=== PATIENT | male | born 1960 | race Caucasian/White ===

== ENCOUNTER 2019-07-23 11:42 | Day surgery (SDC) | payer BC ==
[~2019-07-23] VITALS: Ht 175.3 cm; Wt 75.5 kg
[~2019-07-23 11:42] MED LIST: ASPI325 PO; CENTRUM SILVER1 EAC4 PO; LISI5 PO; LIVALO1 MG PO; LIVALO4 MG PO; Nitrostat0.4 MG SL; Omeprazole20 M1 PO
--- NOTE | 2019-07-23 13:25 | NUR ---
07/23/19 1325 Erica Jeong S 2 SIGMOID COLON POLYPS WERE REMOVED BUT ONLY ONE RETRIEVED. DR. ROSS NOTIFIED BY [email or web address]
== END 2019-07-23 14:05 | disposition home or self-care (01) ==
LOC: ORSCSDS 11:42
PROVIDERS: Internal Medicine Gastroenterology
PROC: 0DBP8ZX Excision of Rectum, Via Natural or Artificial Opening Endoscopic, Diagnostic (ICD-10-PCS; principal; 2019-07-23 13:00)
PROC: 0DB58ZX Excision of Esophagus, Via Natural or Artificial Opening Endoscopic, Diagnostic (ICD-10-PCS; principal; 2019-07-23 13:00)
DX: K21.9 Gastro-esophageal reflux disease without esophagitis (principal); K22.70 Barrett's esophagus without dysplasia; K44.9 Diaphragmatic hernia without obstruction or gangrene; D12.8 Benign neoplasm of rectum; D37.4 Neoplasm of uncertain behavior of colon; K57.30 Diverticulosis of large intestine without perforation or abscess without bleeding; Z12.11 Encounter for screening for malignant neoplasm of colon; Z86.010 Personal history of colon polyps; Z80.0 Family history of malignant neoplasm of digestive organs; I10 Essential (primary) hypertension; E78.2 Mixed hyperlipidemia; Z79.899 Other long term (current) drug therapy; F17.220 Nicotine dependence, chewing tobacco, uncomplicated
CPT/HCPCS: 88305; J2704; J7120

== ENCOUNTER 2022-06-30 07:40 | Day surgery (SDC) | payer BC ==
[~2022-06-30] VITALS: Ht 175.3 cm; Wt 73.3 kg
[~2022-06-30 07:40] MED LIST changes: +Aspir 8181 MG PO; +NITR.4SL SL; +Prinivil10 MG PO; +REPATHA SY140 MG/1 M SC; +TURMERIC ROOT5000 GM
--- NOTE | 2022-06-30 12:32 | NUR ---
06/30/22 1232 Rohith Coelho PT BEGAN REPORTING " MILD" NAUSEA SHORTLY BEFORE DISCHARGE. PT STATED SHE BELIEVED SHE JUST ATE TOO FAST AND WOULD RATHER GO HOME THAN RECEIVE MEDICATION IN STEP DOWN.
== END 2022-06-30 09:58 | disposition home or self-care (01) ==
LOC: ORSCSDS 07:40
PROVIDERS: Ophthalmology
PROC: 08DK3ZZ Extraction of Left Lens, Percutaneous Approach (ICD-10-PCS; principal; 2022-06-30 09:00)
DX: H25.12 Age-related nuclear cataract, left eye (principal); I10 Essential (primary) hypertension; I25.2 Old myocardial infarction; I25.10 Atherosclerotic heart disease of native coronary artery without angina pectoris; E78.5 Hyperlipidemia, unspecified; Z79.82 Long term (current) use of aspirin; Z79.899 Other long term (current) drug therapy
CPT/HCPCS: J2001; J3010; J3301; J7040; V2632

== ENCOUNTER 2022-10-11 08:45 | Day surgery (SDC) | payer BC ==
[~2022-10-11] VITALS: Ht 175.3 cm; Wt 81.1 kg
== END 2022-10-11 10:31 | disposition home or self-care (01) ==
LOC: ORSCSDS 08:45
PROVIDERS: Internal Medicine Gastroenterology
PROC: 0DB58ZX Excision of Esophagus, Via Natural or Artificial Opening Endoscopic, Diagnostic (ICD-10-PCS; principal; 2022-10-11 10:00)
DX: K22.70 Barrett's esophagus without dysplasia (principal); K44.9 Diaphragmatic hernia without obstruction or gangrene; E66.9 Obesity, unspecified; Z68.36 Body mass index [BMI] 36.0-36.9, adult; Z79.899 Other long term (current) drug therapy
CPT/HCPCS: 88305; J2704; J7120

== ENCOUNTER 2022-10-29 13:11 | Day surgery (SDC) | payer BC ==
[~2022-10-29] VITALS: Ht 175.3 cm; Wt 79.2 kg
[2022-10-29] MEDS ORDERED: OMEP20ER PO (14:23)
--- NOTE | 2022-10-29 15:11 | NUR ---
10/29/22 1511 Sathish Mcgraw ROPIVACAINE 0.5% 20 MLS MIXED & VERIFIED W/ EPI 0.10 ML (1MG/ML) PER ORDER TO MAKE ROPIVACAINE 0.5% 1:200,00 FOR INJECTION AT OPSITE. 20 MLS INJECTED.
== END 2022-10-29 16:06 | disposition home or self-care (01) ==
LOC: ORSCSDS 13:11
PROVIDERS: Podiatrist Foot & Ankle Surgery
PROC: 0YBN0ZZ Excision of Left Foot, Open Approach (ICD-10-PCS; principal; 2022-10-29 14:45)
DX: M67.472 Ganglion, left ankle and foot (principal); I10 Essential (primary) hypertension; K21.9 Gastro-esophageal reflux disease without esophagitis; Z87.891 Personal history of nicotine dependence; Z79.82 Long term (current) use of aspirin; Z79.899 Other long term (current) drug therapy
CPT/HCPCS: J0690; J2250; J2704; J2795; J3010; J7120

== ENCOUNTER 2023-10-06 09:05 | Day surgery (SDC) | payer MEDICARE, OTHER ==
[~2023-10-06] VITALS: Ht 175.3 cm; Wt 80.6 kg
[~2023-10-06 09:05] MED LIST changes: +DHEA25 M1 PO; +DORZOLAMIDE-TIM10 ML BOTHEYES; +MULTIPLE VITAM1 EACH PO; +NITR.4SL; +OMEP20ER PO; -TURMERIC ROOT5000 GM; +TURMERIC500 M2 PO; +VITAMIN D310 MC4 PO; +Vitamin B-12250 MCG PO
[2023-10-06 10:55] VITALS: BP 137/91
--- NOTE | 2023-10-06 11:19 | NUR ---
10/06/23 1119 Rohith Coelho IV RTEMOVED INTACT. SITE WNL.
== END 2023-10-06 11:15 | disposition home or self-care (01) ==
LOC: ORSCSDS 09:05
PROVIDERS: Ophthalmology
PROC: 08RJ3JZ Replacement of Right Lens with Synthetic Substitute, Percutaneous Approach (ICD-10-PCS; principal; 2023-10-06 10:30)
DX: H25.11 Age-related nuclear cataract, right eye (principal); Z96.1 Presence of intraocular lens; H40.1131 Primary open-angle glaucoma, bilateral, mild stage; I10 Essential (primary) hypertension; K21.9 Gastro-esophageal reflux disease without esophagitis; I25.10 Atherosclerotic heart disease of native coronary artery without angina pectoris; I25.2 Old myocardial infarction; E78.00 Pure hypercholesterolemia, unspecified; Z87.891 Personal history of nicotine dependence; Z79.82 Long term (current) use of aspirin; Z79.899 Other long term (current) drug therapy
CPT/HCPCS: J2250; J3010; J3301; J7040; V2632

== ENCOUNTER 2024-09-10 10:03 | Day surgery (SDC) | payer MEDICARE, OTHER ==
[~2024-09-10] VITALS: Ht 175.3 cm; Wt 78.1 kg
[~2024-09-10 10:03] MED LIST changes: +Lactated Ringer's 1,000 ML IV ONE; +propofoL 50 ML IV ONE
[2024-09-10] MEDS ORDERED: Lactated Ringer's 1,000 ML IV ONE (11:14)
[2024-09-10 12:38] VITALS: BP 136/97
== END 2024-09-10 12:39 | disposition home or self-care (01) ==
LOC: ORSCSDS 10:03
PROVIDERS: Internal Medicine Gastroenterology
PROC: 0DBP8ZX Excision of Rectum, Via Natural or Artificial Opening Endoscopic, Diagnostic (ICD-10-PCS; principal; 2024-09-10 12:30)
DX: Z12.11 Encounter for screening for malignant neoplasm of colon (principal); D12.8 Benign neoplasm of rectum; Z86.0101 Personal history of adenomatous and serrated colon polyps; Z80.0 Family history of malignant neoplasm of digestive organs; I25.2 Old myocardial infarction; I10 Essential (primary) hypertension; E78.00 Pure hypercholesterolemia, unspecified; Z79.82 Long term (current) use of aspirin; Z79.899 Other long term (current) drug therapy; F17.210 Nicotine dependence, cigarettes, uncomplicated
CPT/HCPCS: 88305; J2704; J7120